=== PATIENT | male | born 1960 | race Caucasian/White ===

== ENCOUNTER 2016-10-25 08:51 | Day surgery (SDC) | payer OTHER ==
[2016-10-19 09:03] VITALS: BMI 23.5
[2016-10-25] MEDS ORDERED: PROPOFOL 20 ML ONE ×2 (09:50)
[2016-10-25 10:56] VITALS: TEMP 98
[2016-10-25 11:16] VITALS: BP 101/56; PULSE 58
== END 2016-10-25 11:20 | disposition home or self-care (01) ==
LOC: FASU-ENDO 08:51
PROVIDERS: ATTEND Internal Medicine Gastroenterology
PROC: 0DJD8ZZ Inspection of Lower Intestinal Tract, Via Natural or Artificial Opening Endoscopic (ICD-10-PCS; principal; 2016-10-25 10:14)
DX: Z12.11 Encounter for screening for malignant neoplasm of colon (principal); K57.30 Diverticulosis of large intestine without perforation or abscess without bleeding; K64.8 Other hemorrhoids

== ENCOUNTER 2022-11-03 11:26 | Day surgery (SDC) | payer OTHER ==
[2022-10-26 12:40] VITALS: BMI 24.1
[2022-11-03 12:00] VITALS: TEMP 97.9
[2022-11-03] MEDS ORDERED: LIDOCAINE HCL/PF 2% SDV 5ML VIAL ONE (13:28)
[2022-11-03] MEDS ORDERED: PROPOFOL 40 ML ONE (13:28)
[2022-11-03 14:28] VITALS: BP 128/74; PULSE 61; RESP 18
== END 2022-11-03 14:20 | disposition home or self-care (01) ==
LOC: FASU-ENDO 11:26
PROVIDERS: ATTEND Internal Medicine Gastroenterology
PROC: 0DB68ZX Excision of Stomach, Via Natural or Artificial Opening Endoscopic, Diagnostic (ICD-10-PCS; 2022-11-03)
PROC: 0DB48ZX Excision of Esophagogastric Junction, Via Natural or Artificial Opening Endoscopic, Diagnostic (ICD-10-PCS; 2022-11-03)
PROC: 0DB98ZX Excision of Duodenum, Via Natural or Artificial Opening Endoscopic, Diagnostic (ICD-10-PCS; principal; 2022-11-03 13:33)
DX: R10.13 Epigastric pain (principal); K31.7 Polyp of stomach and duodenum; K29.50 Unspecified chronic gastritis without bleeding
CPT/HCPCS: 82962; 88305-TC; 88342-TC

== ENCOUNTER 2023-12-14 08:27 | Day surgery (SDC) | payer OTHER ==
[2023-12-11 13:53] VITALS: BMI 22.6
[2023-12-14] MEDS ORDERED: BUPIVACAINE HCL/PF 0.25% (2.5MG/ML) 10 ML VIAL ONE (08:54)
[2023-12-14] MEDS ORDERED: LIDOCAINE 1%/EPI 1:100000 (20 ML MULTI DOSE VIAL) ONE (08:54)
[2023-12-14] MEDS ORDERED: PROPOFOL 20 ML ONE (10:19)
[2023-12-14] MEDS ORDERED: MIDAZOLAM HCL 2 MG/2 ML SINGLE DOSE VIAL ONE (10:19)
[2023-12-14] MEDS ORDERED: oxyCODONE HCL 5 MG TABLET PO PRN (10:26)
[2023-12-14] MEDS ORDERED: ONDANSETRON 4 MG/2 ML VIAL IVPUSH PRN (10:26)
[2023-12-14] MEDS ORDERED: LACTATED RINGERS SOLUTION 1,000 ML IV SCH (10:30)
[2023-12-14] MEDS ORDERED: ePHEDrine SULFATE 50 MG/1 ML AMPULE ONE (10:55)
[2023-12-14] MEDS ORDERED: ceFAZolin SODIUM 1 GM VIAL ONE (11:03)
[2023-12-14] MEDS ORDERED: KETOROLAC TROMETHAMINE 30 MG/1 ML VIAL ONE (11:03)
[2023-12-14] MEDS ORDERED: ONDANSETRON 4 MG/2 ML VIAL ONE (11:03)
[2023-12-14] MEDS ORDERED: DEXAMETHASONE SOD PHOSPHATE 4 MG/1 ML VIAL ONE (11:03)
[2023-12-14] MEDS ORDERED: PHENYLEPHRINE HCL 10 MG/1 ML SINGLE DOSE VIAL ONE (11:08)
[2023-12-14] MEDS ORDERED: ACETAMINOPHEN INJECTION 100 ML ONE (11:43)
[2023-12-14] MEDS: ACETAMINOPHEN 1000 MG/100 ML BAG IVPB ONE (11:45)
[2023-12-14 12:23] VITALS: RESP 16
[2023-12-14 12:24] VITALS: PULSE 66; TEMP 97.9
[2023-12-14] MEDS: oxyCODONE HCL 5 MG TABLET PO ONE (12:25)
[2023-12-14] MEDS ORDERED: oxyCODONE HCL 5 MG TABLET ONE (12:25)
[2023-12-14 13:06] VITALS: BP 139/66
== END 2023-12-14 13:14 | disposition home or self-care (01) ==
LOC: FASUSAT 08:27 → FASU 08:27 → FASUSAT 13:14
PROVIDERS: ATTEND Orthopaedic Surgery
PROC: 01N50ZZ Release Median Nerve, Open Approach (ICD-10-PCS; principal; 2023-12-14 10:50)
PROC: 01N40ZZ Release Ulnar Nerve, Open Approach (ICD-10-PCS; 2023-12-14 10:50)
DX: G56.02 Carpal tunnel syndrome, left upper limb (principal); G56.22 Lesion of ulnar nerve, left upper limb
CPT/HCPCS: 82010; 82962; 94760; J0131